=== PATIENT | female | born 1955 | race Caucasian/White ===

== ENCOUNTER 2017-03-17 15:16 | Emergency (ER) | payer OTHER ==
[~2017-03-17] VITALS: Wt 63.0 kg
[2017-03-17] MEDS ORDERED: SOD CHLORIDE 0.9% 1,000 ML IV STA (16:39)
[2017-03-17] MEDS ORDERED: KETOROLAC 15 MG INJ IV STA (16:39)
[2017-03-17] MEDS ORDERED: VALS80TA2 PO (16:46)
[2017-03-17] MEDS ORDERED: ATOR40TA68 PO (16:46)
[2017-03-17 16:58] LABS: BASOPHIL # 0.1 10^3/ul (0.0-0.1); BASOPHILS % 0.7 % (0.0-2.0); EOSINOPHILS # 0.1 10^3/ul (0.0-0.5); EOSINOPHILS % 0.5 % (0.0-7.0); HEMATOCRIT 38.5 % (37.0-47.0); HEMOGLOBIN 12.6 g/dl (12.0-16.0); LYMPHOCYTES # 2.6 10^3/ul (0.8-2.9); LYMPHOCYTES % 25.4 % (15.0-51.0); MEAN CORPUSCULAR HGB CONC 32.7 g/dl (32.0-37.0); MEAN CORPUSCULAR VOLUME 91.7 fl (82.0-101.0); MEAN PLATELET VOLUME 8.9 fl (7.4-10.4); MONOCYTE # 0.7 10^3/ul (0.3-0.9); MONOCYTES % 6.8 % (0.0-11.0); NEUTROPHILS % 66.3 % (39.0-77.0); PLATELET COUNT 339 10^3/UL (140-415); RED CELL DISTRIBUTION WIDTH 12.1 % (11.5-14.5); WHITE BLOOD COUNT 10.2 10^3/ul (4.8-10.8)
[2017-03-17] MEDS ORDERED: LORAZEPAM 0.5 MG TAB PO ONE (17:00)
[2017-03-17 17:20] LABS: ALANINE AMINOTRANSFERASE 35 IU/L (13-69); ALBUMIN 4.6 g/dl (3.3-4.9); ALBUMIN/GLOBULIN RATIO 1.53; ALKALINE PHOSPHATASE 62 IU/L (42-121); ANION GAP 15 (8-16); ASPARTATE AMINO TRANSFERASE 21 IU/L (15-46); BILIRUBIN,INDIRECT 0.2 mg/dl (0-1.1); BILIRUBIN,TOTAL 0.2 mg/dl (0.2-1.3); BLOOD UREA NITROGEN 15 mg/dl (7-20); CALCIUM 9.7 mg/dl (8.4-10.2); CARBON DIOXIDE 28 mmol/L (21-31); CHLORIDE 104 mmol/L (97-110); CREATININE 0.66 mg/dl (0.44-1.00); GLUCOSE 98 mg/dl (70-220); POTASSIUM 3.8 mmol/L (3.5-5.1); SODIUM 143 mmol/L (135-144); TOTAL PROTEIN 7.6 g/dl (6.1-8.1)
[2017-03-17 17:35] LABS: TROPONIN-I < 0.012 ng/ml (0.00-0.12)
[2017-03-17] MEDS ORDERED: ALPR0.5T PO (17:35)
--- NOTE | 2017-03-17 17:44 | RADRPT ---
PROCEDURE: XR Chest 1 View. CLINICAL INDICATION: Shortness of breath, abdominal pain. TECHNIQUE: AP view of the chest was obtained. COMPARISON: None. FINDINGS: The cardiomediastinal silhouette is within normal limits. No consolidations are identified. No pneu mothorax is seen. Osseous structures are intact. IMPRESSION: No visualized active disease. RPTAT: AA .Keith Zapata MD, Date Time Electronically viewed and signed by .Keith Zapata MD, on 03/17/2017 17:43 .P/
[2017-03-17 18:51] VITALS: BP 126/72; PULSE 62; RESP 17; TEMP 98.7
--- NOTE | 2017-03-17 18:58 | ERD ---
ER Documentation Chief Complaint Date/Time DATE: 03/17/17 TIME: 18:55 Chief Complaint cp HPI 61-year-old woman presents with sharp nonexertional nonradiating chest pain 3 weeks. She states the pain occurs almost daily intermittent throughout the day lasting about 30 minutes to 2 hours at times. She states she has had similar episodes in the past. She denies weight loss, no cough, no calf or leg swelling , no vomiting or diarrhea. ROS All systems reviewed and are negative except as per history of present illness. Medications Home Meds Active Scripts Alprazolam* (Xanax*) 0.5 Mg Tab, 0.5 MG PO TID for MUSCLE SPASMS, #12 TAB Prov:JESSENIA MCKAY MD 03/17/17 Reported Medications Valsartan* (Diovan*) 80 Mg Tablet, 80 MG PO DAILY, TAB 03/17/17 Atorvastatin* (Atorvastatin*) 40 Mg Tablet, 40 MG PO QHS, #30 TAB 03/17/17 Allergies Allergies: Coded Allergies: No Known Allergy (Unverified , 03/17/17) PMhx/Soc Hypertension, dyslipidemia, anxiety History of Surgery: Yes (small bowel surgery 2012) Anesthesia Reaction: No Hx Neurological Disorder: No Hx Respiratory Disorders: No Hx Cardiac Disorders: Yes (htn,hld) Hx Psychiatric Problems: No Hx Miscellaneous Medical Probl: Yes (migraine) Hx Alcohol Use: No Hx Substance Use: No Hx Tobacco Use: No Smoking Status: Never smoker FmHx Family History: No diabetes Physical Exam Vitals Vital Signs Date Time Temp Pulse Resp B/P Pulse Ox O2 Delivery O2 Flow Rate FiO2 03/17/17 18:51 98.7 62 17 126/72 100 Room Air 03/17/17 17:56 98.5 66 20 143/78 100 Room Air 03/17/17 15:20 98.9 79 20 170/78 100 Physical Exam GENERAL: Well-developed, well-nourished, well-hydrated, appears anxious HEENT: Moist mucous membranes, pink conjunctiva, no cervical spine tenderness or step-off deformities, no goiter, no jaundice or icterus, extraocular movements intact without pain. No submandibular induration, and no pharyngeal erythema NEURO: Alert and oriented 3, cranial nerves II through XII intact bilaterally, pupils equal round reactive to light, no focal deficits or facial asymmetry, sensation intact distally Strength 5/5 in upper and lower extremities bilaterally CARDIAC: Regular rate and rhythm, no murmurs rubs or gallops LUNGS: Clear bilaterally no wheezing crackles or stridor ABDOMEN: Soft nontender, no guarding, no rigidity, no rebound, no psoas sign no obturator sign. Normoactive bowel sounds SKIN: Warm and dry to touch, no abrasions, contusions, or hematomas, no lacerations, no ecchymosis, no target lesions, and without ulcers EXTREMITIES: No clubbing cyanosis or edema, calves are bilaterally symmetrical, no Homans sign, no popliteal cord sign. Distal pulses equal and bilateral PSYCH: Appears anxious Result Diagram: 03/17/17 1650 03/17/17 1650 Results 24 hrs Laboratory Tests Test 03/17/17 16:50 White Blood Count 10.210^3/ul Red Blood Count 4.2010^6/ul Hemoglobin 12.6g/dl Hematocrit 38.5% Mean Corpuscular Volume 91.7fl Mean Corpuscular Hemoglobin 30.0pg Mean Corpuscular Hemoglobin Concent 32.7g/dl Red Cell Distribution Width 12.1% Platelet Count 11991^3/UL Mean Platelet Volume 8.9fl Neutrophils % 66.3% Lymphocytes % 25.4% Monocytes % 6.8% Eosinophils % 0.5% Basophils % 0.7% Nucleated Red Blood Cells % 0.0/100WBC Neutrophils # (Manual) 710^3/ul Lymphocytes # 2.610^3/ul Monocytes # 0.710^3/ul Eosinophils # 0.110^3/ul Basophils # 0.110^3/ul Nucleated Red Blood Cells # 0.010^3/ul Sodium Level 143mmol/L Potassium Level 3.8mmol/L Chloride Level 104mmol/L Carbon Dioxide Level 28mmol/L Anion Gap 15 Blood Urea Nitrogen 15mg/dl Creatinine 0.66mg/dl Glucose Level 98mg/dl Calcium Level 9.7mg/dl Total Bilirubin 0.2mg/dl Direct Bilirubin 0.00mg/dl Indirect Bilirubin 0.2mg/dl Aspartate Amino Transf (AST/SGOT) 21IU/L Alanine Aminotransferase (ALT/SGPT) 35IU/L Alkaline Phosphatase 62IU/L Troponin I < 0.012ng/ml Total Protein 7.6g/dl Albumin 4.6g/dl Globulin 3.00g/dl Albumin/Globulin Ratio 1.53 Lipase 89U/L Current Medications Medications (Trade) Dose Ordered Sig/Shobha Route PRN Reason Start Time Stop Time Status Last Admin Dose Admin Sodium Chloride (NS) 1,000 ml @ 1,000 mls/hr Q1H STAT IV 03/17/17 16:39 03/17/17 17:38 DC 03/17/17 17:06 Ketorolac Tromethamine (Toradol) 15 mg ONCE STAT IV 03/17/17 16:39 03/17/17 16:41 DC 03/17/17 17:06 Lorazepam (Ativan) 0.5 mg ONCE ONCE PO 03/17/17 17:00 03/17/17 17:01 DC 03/17/17 17:06 Procedures/MDM IV line was established patient was placed on director of cardiac rehabilitation rhythm strip revealed a sinus rhythm at about 80 bpm with upright P and T waves. Patient was afebrile. EKG performed, read by me: 83 bpm, normal sinus rhythm, normal axis, no acute ST segment changes, narrow QRS complex, with good R-wave progression in precordial leads. One AP view of the chest performed, read by me reveals no acute infiltrates, normal mediastinum, sharp costophrenic and cardiac borders, no air under the diaphragm. Otherwise unremarkable chest x-ray. I administered 1 L normal saline intravenously, Toradol 15 mg IV, lorazepam 0.5 mg p.o. with good response. Pain and discomfort resolved completely. CBC and electrolytes are normal, liver function tests are normal, troponin was negative. Cardiac etiology is unlikely given the nature and duration of her pain. 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 All of this was explained to her. Differential diagnoses considered, included but not limited to acute coronary syndrome, pulmonary embolism, aortic dissection, abdominal aortic aneurysm, sepsis, stroke, meningitis, encephalitis, pneumonia, appendicitis, cholecystitis , bowel obstruction, pyelonephritis, nephrolithiasis, cystitis, as well as metabolic, hematologic, and electrolyte abnormalities. As well as abscess, cellulitis, fractures, and dislocations. Patient feels much better at this time, and vital signs are normal, symptoms have improved. I did give strict instructions to return to the ED if symptoms continue or worsen, patient will otherwise follow-up with primary care physician. Patient understood instructions and agreed to plan. Disclaimer: Inadvertent spelling and grammatical errors are likely due to EHR/ dictation software use and do not reflect on the overall quality of patient care. Also, please note that the electronic time recorded on this note does not necessarily reflect the actual time of the patient encounter. Departure Diagnosis: Primary Impression: Chest pain Chest pain type: unspecified Qualified Code: R07.9 - Chest pain, unspecified type Condition: Good Patient Instructions: Chest Pain, Uncertain Cause JESSENIA MCKAY MD Mar 17, 2017 18:56
== END 2017-03-17 19:06 | disposition home or self-care (01) ==
LOC: E/R 15:16
DX: R07.9 Chest pain, unspecified (principal); I10 Essential (primary) hypertension
CPT/HCPCS: 36415; 71010; 80053; 83690; 84484; 85025; 93005; 96361; 96374; J1885; J7030; Z7502; Z7610